=== PATIENT | male | born 1985 | race Caucasian/White ===

== ENCOUNTER 2024-09-09 13:41 | Outpatient (CLI) | payer OTHER ==
[~2024-09-09 13:41] MED LIST: XANAX XR0.5 MG PO; xanax PO
== END 2024-09-09 13:44 | disposition home or self-care (01) ==
LOC: SONOGRAMA 13:41
PROVIDERS: ATTEND Pathology Anatomic Pathology
DX: R22.1 Localized swelling, mass and lump, neck (principal)